=== PATIENT | male | born 1985 | race Caucasian/White ===

== ENCOUNTER 2021-08-02 20:53 | Emergency (ER) | payer OTHER ==
[~2021-08-02] VITALS: Ht 188 cm; Wt 127.0 kg
[2021-08-02] MEDS ORDERED: ONDANSETRON 4MG ODT PO ONE (22:15)
[2021-08-02] MEDS ORDERED: HYDROCODONE/ACETAMINOPHEN 5/325MG TABLET PO ONE (22:15)
[2021-08-02] MEDS ORDERED: IBUP-2030 MT (22:50)
[2021-08-02] MEDS ORDERED: TRAM50TA3 MT (22:50)
[2021-08-02 23:49] VITALS: BP 151/84
== END 2021-08-02 23:49 | disposition home or self-care (01) ==
LOC: ER 20:53
DX: S93.402A Sprain of unspecified ligament of left ankle, initial encounter (principal); S93.602A Unspecified sprain of left foot, initial encounter; I10 Essential (primary) hypertension; W01.0XXA Fall on same level from slipping, tripping and stumbling without subsequent striking against object, initial encounter; Y93.89 Activity, other specified; Y92.018 Other place in single-family (private) house as the place of occurrence of the external cause
CPT/HCPCS: 29515; 73610; 73630; 99284; Q0162

== ENCOUNTER 2025-02-21 13:07 | Emergency (ER) | payer MEDICAID, OTHER ==
[~2025-02-21] VITALS: Ht 185.4 cm; Wt 127.0 kg
[~2025-02-21 13:07] MED LIST: IBUP-2030 MT; TRAM50TA3 MT
[2025-02-21 13:19] VITALS: O2SAT 98
[2025-02-21] MEDS ORDERED: BO1 TP (14:42)
[2025-02-21] MEDS: TETANUS, DIPHTHERIA, PERTUSSIS VAC/PF 0.5ML (>10YR OLD) IM ONE (14:51)
[2025-02-21 14:53] VITALS: BP 139/96; PULSE 70; RESP 14; TEMP 37; O2SAT 100
== END 2025-02-21 15:01 | disposition home or self-care (01) ==
LOC: ER 13:15
DX: S61.011A Laceration without foreign body of right thumb without damage to nail, initial encounter (principal); I10 Essential (primary) hypertension; Z79.899 Other long term (current) drug therapy; X58.XXXA Exposure to other specified factors, initial encounter; Y93.89 Activity, other specified; Y92.89 Other specified places as the place of occurrence of the external cause; Y99.8 Other external cause status
CPT/HCPCS: 12002; 90471; 90715; 99283